=== PATIENT | male | born 1995 | race Caucasian/White ===

== ENCOUNTER 2021-09-30 16:01 | Emergency (ER) | payer OTHER, SELFPAY ==
[2021-09-30 16:08] VITALS: BP 136/85; PULSE 80; RESP 16; TEMP 36.9; O2SAT 98; BMI 21.1
--- NOTE | 2021-09-30 19:28 | ED_ITS ---
HPI - Wound/Laceration General Chief Complaint: Wound/Laceration Stated Complaint: finger injury Source: patient Mode of arrival: ambulatory Limitations: no limitations History of Present Illness HPI narrative: 26-year-old male presents with a laceration to his left index finger. Patient accidentally hit his own finger with a bug zapper while trying to kill bugs. Unknown when his last Tdap vaccine was updated. Patient has no other concerns and has full range of motion to all extremities Onset (ago): hour(s) (Within the hour of arrival) Extremity Location: left: hand (Index finger) Place: home Patient tetanus UTD: No Context: accidental Associated symptoms: none Treatments prior to arrival: bandage Related Data Previous Rx's Medication Instructions Recorded amoxicillin 875 mg-potassium 1 tab PO Q12H 7 days #14 tabs 09/30/21 clavulanate 125 mg tablet Allergies Allergy/AdvReac Type Severity Reaction Status Date / Time No Known Allergies Allergy Verified 09/30/21 16:07 Review of Systems Review of Systems: Constitutional: No Fever, No Chills ENT/Mouth: No Ear Pain, No Hoarseness, No sore throat Eyes: No Eye Pain, No Swelling, No Redness, No Foreign Body Cardiovascular: No Chest Pain, No SOB Respiratory: No Cough, No Dyspnea Gastrointestinal: No Nausea, No Vomiting, No Diarrhea, No abdominal Pain Genitourinary: No Dysuria, No Hematuria Musculoskeletal: positive left index finger pain, No Myalgias, No Joint Swelling Skin: Positive left index finger laceration, No rash Neuro: No Weakness, No Numbness, No Paresthesias, No Loss of Consciousness, No Dizziness, No Headache Psych: No Anxiety/Panic, No Depression Heme/Lymph: no easy bruising, no Lymphadenopathy Endocrine: No Polyuria, No Polydipsia Yes all other systems are reviewed and are negative FOR[facility]LY [facility] Past Medical History Attestation statement: The following information was validated with the patient. Source: old records reviewed Social History Social History Advance Directives: No Advance Directives Information Provided: No Physical Exam Vital Signs: Vital Signs: Last Vital Signs Temp 98.5 F 09/30/21 16:08 Pulse 80 09/30/21 16:08 Resp 16 09/30/21 16:08 BP 136/85 09/30/21 16:08 Pulse Ox 98 09/30/21 16:08 O2 Del Method 09/30/21 16:08 BMI result Body Mass Index 21.1 Appearance: Alert. Oriented X3. No acute distress. Eyes: Pupils equal, round and reactive to light. ENT: Pharynx normal. Neck: Normal inspection. Neck supple. CVS: Normal heart rate and rhythm. Pulses normal. Respiratory: No respiratory distress. Breath sounds normal. Abdomen: Soft and nontender. Skin: Skin avulsion to the tip of the radial distal aspect of the index finger on the left hand, Skin warm and dry. Normal skin color. Normal skin turgor. Extremities: No lower extremity edema. Full range of motion to all digits. Strength 5/5. Gait well-balanced will coordinate. Brisk capillary refill and equal pulses to bilateral extremities. Neuro: No motor deficit. No sensory deficit. Cranial nerves 2-12 intact. Course Course Course Narrative: 26-year-old male presents with a skin avulsion to the left index finger. Will update Tdap vaccine at this time. Will place Xeroform dressing and give Augmentin due to mechanism of injury. Wound was cleaned and irrigated with copious amounts of normal saline and Betadine. Bleeding is well controlled, brisk capillary refill and equal pulses bilaterally. Full range of motion. Strength 5/5. No indication of tendon injury. No nail bed injury. Patient verbalized understanding of and agrees to plan of care discharge home. Verbalized understanding of signs and symptoms indicating need for emergent intervention. MDM - Wound/Laceration Differential Diagnosis Differential diagnosis: Likely laceration, abrasion and avulsion of skin Medical Records Attestation: I reviewed the patient's medical records. Discharge Plan Discharge Clinical Impression: Avulsion of skin Patient Disposition: Home, Self-Care Instructions: Skin Avulsion (ED) Additional Instructions: You were evaluated for a finger injury sustained from a bug zapper. Please keep the area clean and dry. Keep dressing on for 3 days. Take Augmentin 875 mg for the next 7 days. We updated your Tdap vaccine today. If you notice any worsening symptoms, or signs of infection please return immediately. Follow-up with primary care physician as needed. Thank you for choosing this emergency department for evaluation. Please follow-up with primary care physician as needed. Return to the emergency department for any new, concerning, or worsening symptoms. Prescriptions: New amoxicillin-pot clavulanate 875-125 mg tablet 1 tab PO Q12H 7 Days Qty: 14 0RF
[2021-09-30] MEDS: Amoxicillin/Potassium Clav 875 MG TABLET PO (19:40)
[2021-09-30] MEDS: Diphth,Pertus(ACell),Tet Adult 0.5 ML SYRINGE IM (19:41)
== END 2021-09-30 20:30 | disposition home or self-care (01) ==
PROVIDERS: Emergency Provider Internal Medicine
DX: S61.211A Laceration without foreign body of left index finger without damage to nail, initial encounter (principal); S60.411A Abrasion of left index finger, initial encounter; Y28.9XXA Contact with unspecified sharp object, undetermined intent, initial encounter; Y93.9 Activity, unspecified; Y92.9 Unspecified place or not applicable; Y99.9 Unspecified external cause status
CPT/HCPCS: 90471; 90715; 99282; 99284